=== PATIENT | male | born 1985 | race Two or more races ===

== ENCOUNTER 2020-05-30 08:54 | Emergency (ER) | payer SELFPAY ==
[~2020-05-30] VITALS: Ht 180.3 cm; Wt 86.2 kg
[2020-05-30 09:15] VITALS: BP 134/89
[2020-05-30] MEDS ORDERED: cefTRIAXone SOD 1,000 MG VL IM ONE (09:45)
[2020-05-30] MEDS ORDERED: LIDOCAINE 1% HCL (LOCAL ANESTH.) INJ 20ML MDV ONE (09:51)
== END 2020-05-30 10:28 | disposition home or self-care (01) ==
LOC: ER 08:54
DX: L02.02 Furuncle of face (principal); D22.9 Melanocytic nevi, unspecified; F17.210 Nicotine dependence, cigarettes, uncomplicated
CPT/HCPCS: 96372; 99283; J0696; J2001

== ENCOUNTER 2020-09-03 09:46 | Emergency (ER) | payer SELFPAY ==
[~2020-09-03] VITALS: Ht 182.9 cm; Wt 80.3 kg
[2020-09-03 10:57] VITALS: BP 164/99
[2020-09-03 11:02] LABS: Amphetamine Screen, Urine NEGATIVE (NEGATIVE); Barbiturate Scree,Urine NEGATIVE (NEGATIVE); Benzodiazephine Screen, Urine NEGATIVE (NEGATIVE); Cannabinoid Screen, Urine POSITIVE (NEGATIVE); Cocaine Screen, Urine NEGATIVE (NEGATIVE); Opiate Scree,Urine NEGATIVE (NEGATIVE); Phencyclidine Screen, Urine NEGATIVE (NEGATIVE)
[2020-09-03] MEDS ORDERED: diphenhdrAMINE HCL 50 MG/1 ML VL IM ONE (11:45)
== END 2020-09-03 11:46 | disposition home or self-care (01) ==
LOC: ER 09:46
DX: F41.1 Generalized anxiety disorder (principal); F17.210 Nicotine dependence, cigarettes, uncomplicated
CPT/HCPCS: 80307; 96372; 99283; J1200

== ENCOUNTER 2020-09-26 17:15 | Emergency (ER) | payer SELFPAY ==
[~2020-09-26] VITALS: Ht 182.9 cm; Wt 80.3 kg
[2020-09-26] MEDS ORDERED: LORazepam 0.5 MG TAB PO ONE (18:15)
[2020-09-26 18:41] LABS: Albumin 4.4 g/dL (3.4-5.0); Anion Gap 6 (5-15); Aspartate Aminotransferase 15 U/L (15-37); BUN/Creatinine Ratio 17.2; Blood Alcohol < 3.0 mg/dL (0-5); Blood Urea Nitrogen 15 mg/dL (7-18); Calcium 8.8 mg/dL (8.5-10.1); Carbon Dioxide 25 mmol/L (21-32); Chloride 109 mmol/L (98-107); GFR African American 130 mL/min; GFR Non-African American 107 mL/min; Glucose 104 mg/dL (74-106); Magnesium 2.2 mg/dL (1.6-2.6); Potassium 4.1 mmol/L (3.5-5.1); Salicylate 4.5 mg/dL (2.8-20.0); Sodium 140 mmol/L (136-145)
[2020-09-26 18:48] LABS: Acetaminophen < 2.0 ug/mL (10-30)
[2020-09-26 18:49] LABS: Alkaline Phosphatase 112 U/L (45-117); Bilirubin, Total 0.3 mg/dL (0.2-1.0); Total Protein 7.8 g/dL (6.4-8.2)
[2020-09-26 18:51] LABS: Red Cell Distribution Width 13.5 % (11.8-14.3)
[2020-09-26 18:53] LABS: Basophils # (auto) 0.1 10 ^3/uL (0-0.2); Basophils % (auto) 0.8 % (0.0-2.0); Eosinophils # (auto) 0.2 10 ^3/uL (0-0.8); Hematocrit 46.3 % (41.0-53.0); Hemoglobin 16.1 g/dL (13.5-17.5); Lymphocytes # (auto) 3.4 10 ^3/uL (0.4-5.4); Mean Corpuscular Hemoglobin 33.6 pg (28.0-32.0); Mean Corpuscular Hgb Conc. 34.9 g/dL (32.0-36.0); Mean Corpuscular Volume 96.4 fL (80.0-100.0); Monocytes % (auto) 9.5 % (0.0-12.0); Neutrophils # (auto) 6.2 10 ^3/uL (1.6-8.6); Neutrophils % (auto) 56.7 % (37.0-80.0); Nucleated Red Blood Cells % 0.1 %
[2020-09-26 20:52] LABS: Alanine Aminotransferase 30 U/L (16-61)
[2020-09-26 21:27] VITALS: BP 140/82
== END 2020-09-26 21:22 | disposition home or self-care (01) ==
LOC: ER 17:15
DX: F41.1 Generalized anxiety disorder (principal); F17.210 Nicotine dependence, cigarettes, uncomplicated
CPT/HCPCS: 36415; 80053; 80320; 80329; 83735; 85025

== ENCOUNTER 2022-08-24 09:45 | Emergency (ER) | payer MEDICAID ==
[~2022-08-24] VITALS: Ht 182.9 cm; Wt 101.2 kg
[2022-08-24 10:23] VITALS: BP 132/96
[2022-08-24] MEDS ORDERED: BACL20TA PO (11:12)
[2022-08-24] MEDS ORDERED: IBUP-1456 PO (11:12)
[2022-08-24] MEDS ORDERED: KETOROLAC TROMETH 60MG/2ML VIAL IM ONE (11:15)
== END 2022-08-24 12:03 | disposition home or self-care (01) ==
LOC: ER 09:45
DX: M79.671 Pain in right foot (principal); F41.9 Anxiety disorder, unspecified; F17.210 Nicotine dependence, cigarettes, uncomplicated; Z79.1 Long term (current) use of non-steroidal anti-inflammatories (NSAID); Z98.890 Other specified postprocedural states; Z79.899 Other long term (current) drug therapy
CPT/HCPCS: 73610; 73630; 96372; 99284; J1885

== ENCOUNTER 2023-10-05 13:44 | Emergency (ER) | payer MEDICAID ==
[~2023-10-05] VITALS: Ht 180.3 cm; Wt 93.5 kg
[~2023-10-05 13:44] MED LIST: BACL20TA PO; IBUP-1456 PO
[2023-10-05] MEDS ORDERED: CLON0.5T3 PO (14:55)
[2023-10-05] MEDS: clonazePAM 0.5 MG TAB PO ONE (15:05)
[2023-10-05 15:30] LABS: Urine Bacteria None Seen /hpf (None Seen)
[2023-10-05 15:38] VITALS: BP 156/98; PULSE 96; RESP 16; TEMP 97.7; O2SAT 96
[2023-10-05 15:50] LABS: Urine Blood Negative /uL (Negative); Urine Clarity Turbid (Clear); Urine Color Yellow (Yellow); Urine Mucus MODERATE (None Seen); Urine Protein, UAD 1+ (Negative); Urine Specific Gravity 1.035 (1.001-1.035); Urine Urobilinogen 3 mg/dL (Negative); Urine WBC 3 /hpf (0 - 3)
== END 2023-10-05 15:43 | disposition home or self-care (01) ==
LOC: ER 13:44
DX: F41.1 Generalized anxiety disorder (principal); R53.1 Weakness; R00.2 Palpitations
CPT/HCPCS: 81001; 93005

== ENCOUNTER 2024-07-15 13:42 | Emergency (ER) | payer MEDICAID ==
[~2024-07-15] VITALS: Ht 180.3 cm; Wt 88.8 kg
[~2024-07-15 13:42] MED LIST changes: +CLON0.5T3 PO
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
[2024-07-15 14:37] LABS: Basophils # (auto) 0.1 10 ^3/uL (0-0.2); Eosinophils # (auto) 0 10 ^3/uL (0-0.8); Eosinophils % (auto) 0.3 % (0.0-7.0); Hematocrit 47.8 % (41.0-53.0); Hemoglobin 16.5 g/dL (13.5-17.5); Lymphocytes % (auto) 15.6 % (10.0-50.0); Mean Corpuscular Hemoglobin 32.8 pg (28.0-32.0); Mean Corpuscular Hgb Conc. 34.5 g/dL (32.0-36.0); Mean Corpuscular Volume 94.9 fL (80.0-100.0); Monocytes # (auto) 0.9 10 ^3/uL (0-1.3); Monocytes % (auto) 7.4 % (0.0-12.0); Neutrophils # (auto) 9.7 10 ^3/uL (1.6-8.6); Neutrophils % (auto) 75.7 % (37.0-80.0); Nucleated Red Blood Cells % 0.1 %; Platelet Count (auto) 317 10^3/uL (140-450); Red Blood Cells 5.04 10^6/uL (4.5-5.90); Red Cell Distribution Width 12.7 % (11.8-14.3); White Blood Cell 12.8 10^3/uL (4.4-10.8)
[2024-07-15] MEDS: SODIUM CHLORIDE 0.9% 1,000 ML IV ONE (14:38)
[2024-07-15] MEDS: hydrALAZINE HCL 20 MG/ML VL IV ONE (14:38)
[2024-07-15] MEDS: ONDANSETRON HCL 4 MG/2 ML VIAL IV ONE (14:38)
[2024-07-15 14:40] VITALS: PULSE 109; RESP 16; O2SAT 99
[2024-07-15 14:46] LABS: Chloride 102 mmol/L (98-107); Sodium 138 mmol/L (136-145)
[2024-07-15 14:47] LABS: Anion Gap 11 (5-15); Calcium 9.7 mg/dL (8.7-10.4); Carbon Dioxide 25 mmol/L (20-31)
[2024-07-15 14:52] LABS: BUN/Creatinine Ratio 15.2 (10.0-20.0); Blood Urea Nitrogen 16 mg/dL (9-23); Glucose 140 mg/dL (74-106); Potassium 3.5 mmol/L (3.5-5.1)
[2024-07-15 15:05] VITALS: TEMP 98.6
[2024-07-15] MEDS: cloNIDine HCL 0.1 MG TAB PO ONE (16:40)
[2024-07-15 17:48] VITALS: BP 154/93; PULSE 93; RESP 16; O2SAT 98
--- NOTE | 2024-07-19 14:42 | ECG ---
[facility] Test Date: 2024-07-15 Test Time: 13:53:27 Pat Name: MITCHELL MARTIN Department: ER Room: Gender: M Java Developer Consultant: OB : 1985 Requested By: WALLY MURRY Order Number: [id number] Reading MD: Measurements Intervals [place] Rate: 102 P: 45 ID: [id number] QRS: -2 QRSD: 153 T: 42 QT: 413 QTc: 539 Interpretive Statements Sinus tachycardia Right bundle branch block Please click the below link to view image of tracing.
== END 2024-07-15 18:07 | disposition home or self-care (01) ==
LOC: ER 13:45
DX: I16.0 Hypertensive urgency (principal); F41.9 Anxiety disorder, unspecified; Z79.899 Other long term (current) drug therapy; Z98.890 Other specified postprocedural states
CPT/HCPCS: 36415; 80048; 82947; 85025; 96374; 96375; 99285; J0360; J2405; J7030; 82962

== ENCOUNTER 2024-12-06 06:35 | Emergency (ER) | payer MEDICAID ==
[~2024-12-06] VITALS: Ht 180.3 cm; Wt 88.5 kg
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
[2024-12-06] MEDS ORDERED: PRED20TA2 PO (08:07)
[2024-12-06] MEDS ORDERED: CEPH500C PO (08:07)
[2024-12-06] MEDS: cefTRIAXone SOD 1,000 MG VL IM ONE (08:31)
[2024-12-06] MEDS: LIDOCAINE 1% HCL (LOCAL ANESTH.) INJ 20ML MDV ONE (08:31)
[2024-12-06] MEDS: methylPREDNISolone SOD SUCC 125 MG/2 ML VL IM ONE (08:31)
[2024-12-06 08:34] VITALS: BP 161/82; PULSE 94; RESP 18; TEMP 98.3; O2SAT 96
== END 2024-12-06 08:35 | disposition home or self-care (01) ==
LOC: ER 06:35
DX: S00.82XA Blister (nonthermal) of other part of head, initial encounter (principal); S60.522A Blister (nonthermal) of left hand, initial encounter; S60.521A Blister (nonthermal) of right hand, initial encounter; L23.5 Allergic contact dermatitis due to other chemical products; F41.9 Anxiety disorder, unspecified; I10 Essential (primary) hypertension; Z79.899 Other long term (current) drug therapy; Z79.52 Long term (current) use of systemic steroids; L08.9 Local infection of the skin and subcutaneous tissue, unspecified; X58.XXXA Exposure to other specified factors, initial encounter; Y93.89 Activity, other specified; Y92.89 Other specified places as the place of occurrence of the external cause; Y99.8 Other external cause status
CPT/HCPCS: 96372; 99284; J0696; J2003; J2919